=== PATIENT | female | born 1985 | race Caucasian/White ===

== ENCOUNTER 2018-07-12 23:41 | Inpatient (IN) ==
[2018-07-13 00:31] LABS: Cocaine Ur Negative (NEGATIVE); Urine Barbiturate Negative (NEGATIVE); Urine Benzodiazepines Negative (NEGATIVE); Urine Opiates Negative (NEGATIVE); Urine PCP Negative (NEGATIVE); Urine THC Negative (NEGATIVE)
[2018-07-13] MEDS ORDERED: OXYTOCIN/DEXTROSE 5%-WATER 30 UNITS/500 ML BAG IV ONE (01:19)
[2018-07-13] MEDS ORDERED: ONDANSETRON HCL/PF 2 MG/ML VIAL IV PRN (01:19)
[2018-07-13] MEDS ORDERED: DEXTROSE 5%-LACTATED RINGERS 1,000 ML IV PRN (01:19)
[2018-07-13] MEDS ORDERED: RINGER'S SOLUTION,LACTATED 1,000 ML IV ONE (01:19)
--- NOTE | 2018-07-13 01:41 | HP ---
Chief Complaint - Chief Complaint Date of Service: 07/13/18 Time of Service: 01:41 Chief Complaint: contractions History of Present Illness: 32 yo at 37 5/7 wks presents to L&D complaining of contractions of increased frequency and intensity. This complicated by depression, and history of kidney donor, LEEP, and fast labors. Rh negative Rubella Nonimmune GBS negative Medical History (Last Reviewed 07/13/18 @ 01:48 by Bruce Holder DO) (Acute) ASCUS of cervix with negative high risk HPV Depression Headache Onset Date: Unknown Kidney donor Onset Date: Unknown Surgical History: Surgical History (Last Reviewed 07/13/18 @ 01:48 by Bruce Holder DO) H/O LEEP Onset Date: 2007 H/O kidney transplant Onset Date: ~04/2015 kidney donor H/O dilation and curettage Onset Date: Unknown Family History: Family History (Last Reviewed 07/13/18 @ 01:48 by Bruce Holder DO) Mother Depression Hypertension Grandmother Fibromyalgia Maternal Grandfather Lung cancer maternal Social History: Preferred Language [place] Smoking Status Never smoker (Last Updated 07/08/18 @ 14:53 by Wyatt Perez MD) No Social History Section defined Review Of Systems (GEN) - Review of Systems Generalized/Overall Review: Present: No Symptoms Reported EENTM: Present: No Symptoms Reported Respiratory: Present: No Symptoms Reported Cardiac: Present: No Symptoms Reported Abdominal: Present: Other - contractions Genitourinary: Present: No Symptoms Reported Musculoskeletal: Present: No Symptoms Reported Neurological: Present: No Symptoms Reported Skin: Present: No Symptoms Reported Endocrine: Present: No Symptoms Reported Allergies/Adverse Reactions: Allergies Allergy/AdvReac Type Severity Reaction Status Date / Time No Known Allergies Allergy Verified 07/13/18 00:10 Home Medications: HOME MEDICATIONS vits no.126-ferrous fum 28 mg iron-folic acid 800 mcg tablet 1 tab PO DAILY tab 01/25/18 [Last Taken Unknown] ferrous sulfate 325 mg (65 mg iron) tablet 325 mg PO DAILY tab 05/05/18 [Last Taken Unknown] omeprazole 20 mg capsule,delayed release 20 mg PO BID #60 cap 06/30/18 [Last Taken Unknown] Exam - Exam Vital Signs: Vital Signs - Last Taken Temp 36.9 C 07/13/18 01:38 Pulse 106 H 07/13/18 01:38 Resp 16 07/13/18 01:38 BP 124/78 07/13/18 01:38 Pulse Ox 100 07/13/18 01:38 Constitutional: Present: Alert, Oriented x3, Cooperative, Mild distress - due to pain with contractions ENT Exam: Present: hearing grossly normal Breasts: Present: Exam deferred Respiratory: Present: lungs clear, no respiratory distress Cardiovascular/Chest: Present: normal peripheral pulses, regular rate, rhythm, no edema Abdomen: Present: soft, nontender, no rebound tenderness, other - gravid /Rectal: Present: Other - //-2 Extremity: Present: no calf tenderness Skin Exam: Present: normal color, warm/dry, no cyanosis Neurologic: Present: alert, normal mood/affect, oriented x 3 Appearance: Present: appropriate appearance Eye contact: Present: cooperative, good eye contact Thoughts: Present: normal thought pattern Diagnostic Studies: Laboratory Results Urine Opiates Screen Negative (NEGATIVE) 07/13/18 00:08 Barbiturate Screen Negative (NEGATIVE) 07/13/18 00:08 Ur Phencyclidine Scrn Negative (NEGATIVE) 07/13/18 00:08 Urine Amphetamine Negative (NEGATIVE) 07/13/18 00:08 U Benzodiazepines Scrn Negative (NEGATIVE) 07/13/18 00:08 Urine Cocaine Screen Negative (NEGATIVE) 07/13/18 00:08 Urine Marijuana (THC) Negative (NEGATIVE) 07/13/18 00:08 Assessment/Plan - Assessment/Plan (1) Labor established Assessment: Admit for routine management of labor. Problem: Acute (2) Anemia affecting Assessment: Continue iron . Problem: Acute Qualifiers: Trimester: third trimester Qualified Code(s): O99.013 - Anemia complicating , third trimester (3) Depression Assessment: Monitor closely for depression. Problem: Chronic Qualifiers: Major depression recurrence: unspecified whether recurrent Active/Remission status: remission status unspecified
--- NOTE | 2018-07-13 01:44 | OR ---
Operative Report - Dictated Report Narrative: Spontaneous precipitous vaginal delivery of viable female at 0120 on 07/13/2018 with Apgars 9 and 9, weighing 2931 g in CHATA position. Cord clamping delayed approximately 30 sec Placenta delivered complete, intact, with three vessel cord Estimated blood loss: less than 50 ml Anesthesia: None Lacerations: None
[2018-07-13] MEDS ORDERED: SENNOSIDES 8.6 MG TABLET PO PRN (02:42)
[2018-07-13] MEDS ORDERED: IBUPROFEN 800 MG TABLET PO PRN (02:42)
[2018-07-13] MEDS ORDERED: GLYCERIN/WITCH HAZEL LEAF 40 APPL BOX TP PRN (02:42)
[2018-07-13] MEDS ORDERED: HYDROCORTISONE 30 APPL TUBE TP PRN (02:42)
[2018-07-13] MEDS ORDERED: BISACODYL 10 MG SUPP.RECT RC PRN (02:42)
[2018-07-13] MEDS ORDERED: BENZOCAINE/MENTHOL 81 SPRAY CAN TP PRN (02:42)
[2018-07-13] MEDS ORDERED: oxyCODONE HCL/ACETAMINOPHEN 1 TAB TABLET PO PRN (02:42)
[2018-07-13] MEDS: ACETAMINOPHEN 500 MG TABLET PO PRN ×2 (03:11→14:54)
[2018-07-13] MEDS: oxyCODONE HCL/ACETAMINOPHEN 1 TAB TABLET PO PRN ×3 (07:13→23:18)
[2018-07-13] MEDS ORDERED: [UNRECOGNIZED DRUG - REMARK] PO SCH (09:00)
[2018-07-13] MEDS ORDERED: NON-FORMULARY 1 DOSE DOSE (Ferrous Sulfate [Iron] 325 MG) PO SCH (09:00)
[2018-07-13] MEDS ORDERED: RHO(D) IMMUNE GLOBULIN 1,500 UNIT SYRINGE IM ONE (09:20)
[2018-07-13] MEDS: DOCUSATE SODIUM 100 MG CAPSULE PO SCH ×3 (14:14→23:12)
[2018-07-14] MEDS: oxyCODONE HCL/ACETAMINOPHEN 1 TAB TABLET PO PRN ×2 (09:02→19:50)
[2018-07-14] MEDS: DOCUSATE SODIUM 100 MG CAPSULE PO SCH ×2 (09:02→21:14)
--- NOTE | 2018-07-14 13:45 | PN ---
Subjective - Date and Time Seen Date: 07/14/18 Time: 13:30 Objective - Vitals Vitals: Last Vital Signs Temp 36.0 C 07/14/18 09:54 Pulse 82 07/14/18 09:54 Resp 14 07/14/18 09:54 BP 118/65 07/14/18 09:54 Pulse Ox 99 07/14/18 09:54 Patient denies complaints. Lochia wnl Abdomen - soft, nontender Uterus - firm, at umbilicus - 1 No calf tenderness Impression: day #1 - s/p spontaneous vaginal delivery. Plan: Continue routine care Assessment/Plan - Problems/Diagnosis (1) Labor established Problem: Acute (2) Anemia affecting Problem: Acute Qualifiers: Trimester: third trimester Qualified Code(s): O99.013 - Anemia complicating , third trimester (3) Depression Problem: Chronic Qualifiers: Major depression recurrence: unspecified whether recurrent Active/Remission status: remission status unspecified
[2018-07-14] MEDS: ACETAMINOPHEN 500 MG TABLET PO PRN (17:51)
[2018-07-15] MEDS: ACETAMINOPHEN 500 MG TABLET PO PRN (02:22)
[2018-07-15 07:16] VITALS: BP 131/75
--- NOTE | 2018-07-15 12:18 | PN ---
Subjective - Date and Time Seen Date: 07/15/18 Time: 12:16 Objective - Vitals Vitals: Last Vital Signs Temp 36.6 C 07/15/18 07:08 Pulse 86 07/15/18 07:08 Resp 16 07/15/18 07:08 BP 131/75 07/15/18 07:08 Pulse Ox 99 07/15/18 07:08 Patient denies complaints. Lochia wnl Abdomen - soft, nontender Uterus - firm, at umbilicus - 2 No calf tenderness Impression: day #2 - s/p spontaneous vaginal delivery. Plan: Routine discharge instructions Assessment/Plan - Problems/Diagnosis (1) Labor established Problem: Acute (2) Anemia affecting Problem: Acute Qualifiers: Trimester: third trimester Qualified Code(s): O99.013 - Anemia complicating , third trimester (3) Depression Problem: Chronic Qualifiers: Major depression recurrence: unspecified whether recurrent Active/Remission status: remission status unspecified
[2018-07-15] MEDS: DOCUSATE SODIUM 100 MG CAPSULE PO SCH (12:38)
--- NOTE | 2018-07-17 14:09 | PN ---
Progess Note - Interim Date: 07/17/18 Time: 14:08 History for MU Definition: * The number of deliveries resulting in a live the patient experienced prior to current hospitalization * The previous delivery of live twins or any live multiple gestation is considered one live event. *If primagravida or nulliparous is documented select zero for the number of previous live births. Live Events: 2
== END 2018-07-15 15:50 | disposition home or self-care (01) | DRG 806 ==
LOC: OBCLINIC 23:41 → OB 07-13 01:08
PROVIDERS: ADMIT Obstetrics & Gynecology; ATTEND Obstetrics & Gynecology
CPT/HCPCS: 59025; 80307; 85460; J2790